=== PATIENT | female | born 1965 | race African-American/Black ===

== ENCOUNTER 2017-10-09 13:58 | Inpatient (IN) | payer OTHER ==
[2017-10-09 16:57] VITALS: BMI 21.4
--- NOTE | 2017-10-09 19:51 | HP ---
CIWA Score - CIWA Score Nausea/Vomitin Muscle Tremors: 3 Anxiety: 3 Agitation: 3 Paroxysmal Sweats: 2 Orientation: 0-Oriented Tacttile Disturbances: 2-Mild Itch/Numbness/Burn Auditory Disturbances: 2-Mild Harshness/Frighten Visual Disturbances: 1-Very Mild Sensitivity Headache: 2-Mild CIWA-Ar Total Score: 21 Admission ROS BHS - HPI Chief Complaint: i am here for detox from alcohol and crack Allergies/Adverse Reactions: Allergies Allergy/AdvReac Type Severity Reaction Status Date / Time No Known Allergies Allergy Verified 10/09/17 18:24 History of Present Illness: this 52 years old female with alcohol and cocaine dependence,seeking detox,last treatment 08/21/17 to 08/25/17 hypertension syncope nicotine dependence longest period of sobriety 2 months depression hiv since 1998 Exam Limitations: No Limitations - Ebola screening Have you traveled outside of the country in the last 21 days: No (N) Have you had contact with anyone from an Ebola affected area: No Have you been sick,other than usual withdrawal symptoms: No Do you have a fever: No - Review of Systems Constitutional: Loss of Appetite, Malaise, Night Sweats, Changes in sleep, Weakness, Unintentional Wgt. Loss EENT: reports: Tearing, Nose Congestion Respiratory: reports: No Symptoms reported Cardiac: reports: No Symptoms Reported GI: reports: Diarrhea, Nausea, Poor Appetite, Vomiting : reports: No Symptoms Reported Musculoskeletal: reports: Back Pain, Muscle Pain Integumentary: reports: Dryness Endocrine: reports: No Symptoms Reported Hematology: reports: No Symptoms Reported, Other (hiv) Psychiatric: reports: No Sypmtoms Reported, Judgement Intact, Mood/Affect Appropiate, Depressed Patient History - Patient Medical History Hx Anemia: No Hx Asthma: Yes (on albuterol inhaler) Hx Chronic Obstructive Pulmonary Disease (COPD): No Hx Cancer: No Hx Cardiac Disorders: No Hx Congestive Heart Failure: No Hx Hypertension: Yes (on med) Hx Hypercholesterolemia: No Hx Pacemaker: No HX Cerebrovascular Accident: No Hx Seizures: No Hx Diabetes: No Hx Gastrointestinal Disorders: No Hx Genitourinary Disorders: No Hx Sexually Transmitted Disorders: Yes (SYPHILIS treated) Hx Renal Disease (ESRD): No Hx Thyroid Disease: No Hx Human Immunodeficiency Virus (HIV): Yes (since 1998) Hx Hepatitis C: Yes (TREATED) Hx Depression: Yes Hx Suicide Attempt: No Hx Bipolar Disorder: No Hx Schizophrenia: No Other Medical History: no suicidal,no homicidal - Patient Surgical History Past Surgical History: Yes Hx Neurologic Surgery: No Hx Cataract Extraction: No Hx Cardiac Surgery: No Hx Lung Surgery: No Hx Breast Surgery: No Hx Breast Biopsy: No Hx Abdominal Surgery: Yes (hernia repair x2) Hx Appendectomy: No Hx Cholecystectomy: No Hx Genitourinary Surgery: No Hx Section: Yes (in 1985) Hx Orthopedic Surgery: No Other Surgical History: hysterectomy in 2003 - PPD History Previous Implant?: Yes Documented Results: Positive w/proof Implanted On Prior [facility] Admission?: No PPD to be Administered?: No - Reproductive History Last Menstrual Period: 03/25/04 Patient : No - Smoking Cessation Smoking history: Current every day smoker Have you smoked in the past 12 months: Yes Aproximately how many cigarettes per day: 5 Cigars Per Day: 0 Hx Chewing Tobacco Use: No Initiated information on smoking cessation: Yes 'Breaking Loose' booklet given: 10/09/17 - Substance & Tx. History Hx Alcohol Use: Yes Hx Substance Use: Yes Substance Use Type: Alcohol, Cocaine Hx Substance Use Treatment: Yes ([facility] 08/21/17 to 08/25/17) - Substances Abused Alcohol Route: Oral Frequency: Daily Amount used: 6 PKS OF VODKA Age of first use: 13 Date of Last Use: 10/07/17 Crack Route: Smoking Frequency: Daily Amount used: $100 Age of first use: 18 Date of Last Use: 10/08/17 Family Disease History - Family Disease History Family Disease History: Other: Father ( HX/O DRUG/ETOH DEP), Mother ( HX/O DRUG/ETOH DEP), Sister (ALCOHOLISM) Admission Physical Exam S - Vital Signs Vital Signs: Vital Signs - 24 hr 10/09/17 16:53 Temperature 96 F L Pulse Rate 88 Respiratory 20 Rate Blood Pressure 116/77 - Physical General Appearance: Yes: Moderate Distress, Tremorous, Irritable, Sweating, Anxious HEENTM: Yes: Normal ENT Inspection, AMELIA, Pharynx Normal Respiratory: Yes: Lungs Clear, Normal Breath Sounds, No Respiratory Distress Neck: Yes: Within Normal Limits, Supple, Trachea in good position Breast: Yes: Breast Exam Deferred Cardiology: Yes: Within Normal Limits, Regular Rhythm, Regular Rate, S1, S2 Abdominal: Yes: Within Normal Limits, Normal Bowel Sounds, Flat, Soft, Surgical Scar Genitourinary: Yes: Within Normal Limits Back: Yes: Muscle Spasm Musculoskeletal: Yes: Back pain, Muscle Pain Extremities: Yes: Tremors Neurological: Yes: developer designer II-XII NML intact, Fully Oriented, Alert, Motor Strength 5/5 Integumentary: Yes: Dry Lymphatic: Yes: Within Normal Limits - Diagnostic (1) Cocaine dependence, uncomplicated Current Visit: No Status: Acute (2) HIV (human immunodeficiency virus infection) Current Visit: No Status: Acute (3) Hepatitis C Current Visit: No Status: Acute (4) Alcohol dependence with uncomplicated withdrawal Current Visit: No Status: Chronic (5) Asthma Current Visit: No Status: Chronic Qualifiers: Asthma severity: mild intermittent (6) Nicotine dependence Current Visit: No Status: Chronic Qualifiers: Nicotine product type: cigarettes Substance use status: uncomplicated Qualified Code(s): F17.210 - Nicotine dependence, cigarettes, uncomplicated (7) Insomnia secondary to depression with anxiety Current Visit: Yes Status: Acute (8) Weight loss Current Visit: Yes Status: Acute Cleared for Admission [facility] - Detox or Rehab [facility] Level of Care: Medically Managed Detox Regimen/Protocol: Librium [facility] Breath Alcohol Content Breath Alcohol Content: 0 Urine Pregancy Test - Result Urine Test Results: Negative- NO Line Present Urine Drug Screen - Results Drug Screen Negative: No Urine Drug Screen Results: BARBARA-Cocaine, TCA-Tricyclic Antidepress
[2017-10-09] MEDS ORDERED: MENTHOL/PHENOL 1 EACH UD MM PRN (20:08)
[2017-10-09] MEDS ORDERED: MAGNESIUM HYDROX 2400MG/30ML ORAL SUSPENSION 30 ML CUP PO PRN (20:08)
[2017-10-09] MEDS ORDERED: IBUPROFEN 400 MG TABLET (FP) PO PRN (20:08)
[2017-10-09] MEDS ORDERED: chlordiazePOXIDE HCL 25 MG CAPSULE PO ONE (20:08)
[2017-10-09] MEDS ORDERED: hydrOXYzine PAMOATE 25 MG CAPSULE (FP) PO PRN (20:08)
[2017-10-09] MEDS ORDERED: P-EPHED 60MG/TRIPROLIDI 2.5MG TABLET PO PRN (20:08)
[2017-10-09] MEDS ORDERED: LOPERAMIDE HCL 2 MG CAPSULE PO PRN (20:08)
[2017-10-09] MEDS ORDERED: guaiFENesin/D-METHORPHAN HB 10 ML UNIT-DOSE CUPS PO PRN (20:08)
[2017-10-09] MEDS ORDERED: chlordiazePOXIDE HCL 25 MG CAPSULE PO PRN (20:08)
[2017-10-09] MEDS ORDERED: MAGNESIUM CITRATE 300 ML BOTTLE PO PRN (20:08)
[2017-10-09] MEDS ORDERED: ACETAMINOPHEN 325 MG TABLET (FP) PO PRN (20:08)
[2017-10-09] MEDS ORDERED: MAG HYDROX/AL HYDROX/SIMETH 30 ML UNIT-DOSE CUP PO PRN (20:08)
[2017-10-09] MEDS: MONTELUKAST NA 10 MG TABLET PO SCH (22:12)
[2017-10-09] MEDS: chlordiazePOXIDE HCL 25 MG CAPSULE PO SCH (22:13)
[2017-10-09] MEDS: THIAMINE HCL 100 MG TABLET (FP) PO SCH (22:13)
[2017-10-10] MEDS: chlordiazePOXIDE HCL 25 MG CAPSULE PO SCH ×4 (05:29→22:11)
[2017-10-10] MEDS ORDERED: PATIENT'S OWN MEDICATION (NON-FORMULARY) (Abacavir Sulfate/Lamivudine [Abacavir-Lamivudine PO SCH ×2 (10:00)
[2017-10-10] MEDS ORDERED: PATIENT'S OWN MEDICATION (NON-FORMULARY) (Lisinopril/Hydrochlorothiazide [Lisinopril-Hctz PO SCH (10:00)
[2017-10-10] MEDS ORDERED: DARUNAVIR ETHANOLATE 800 MG TAB PO SCH (10:00)
[2017-10-10 10:17] LABS: MCHC 32.5 g/dl (32.0-36.0); MEAN CELL VOLUME 95.3 fl (80-96); MEAN PLT VOLUME 7.5 fl (7.5-11.1); PLATELET COUNT 191 K/MM3 (134-434); RDW 13.6 % (11.6-15.6); WHITE BLOOD COUNT 3.4 K/mm3 (4.0-10.0)
--- NOTE | 2017-10-10 10:36 | PN ---
S CIWA - CIWA Score Nausea/Vomitin Muscle Tremors: 3 Anxiety: 3 Agitation: 3 Paroxysmal Sweats: 2 Orientation: 0-Oriented Tacttile Disturbances: 1-Very Mild Itch/Numbness Auditory Disturbances: 1-Very Mild Visual Disturbances: 0-None Headache: 1-Very Mild CIWA-Ar Total Score: 17 BHS Progress Note (SOAP) Subjective: ALERT,IRRITABLE,ANXIOUS,INTERRUPTED SLEEP,TREMOR Objective: 10/10/17 10:34 Vital Signs Temperature 97.9 F 10/10/17 10:31 Pulse Rate 75 10/10/17 10:31 Respiratory Rate 18 10/10/17 10:31 Blood Pressure 123/75 10/10/17 10:31 O2 Sat by Pulse Oximetry (%) EKG NSR NO CHEST PAIN,NO SOB,NO DIZZINESS Laboratory Last Values WBC 3.4 K/mm3 (4.0-10.0) L 10/10/17 04:00 RBC 3.52 M/mm3 (3.60-5.2) L 10/10/17 04:00 Hgb 10.9 GM/dL (10.7-15.3) 10/10/17 04:00 Hct 33.5 % (32.4-45.2) 10/10/17 04:00 MCV 95.3 fl (80-96) 10/10/17 04:00 MCH 31.0 pg (25.7-33.7) 10/10/17 04:00 MCHC 32.5 g/dl (32.0-36.0) 10/10/17 04:00 RDW 13.6 % (11.6-15.6) 10/10/17 04:00 Plt Count 191 K/MM3 (134-434) 10/10/17 04:00 MPV 7.5 fl (7.5-11.1) 10/10/17 04:00 LABS PENDING Assessment: 10/10/17 10:35 WITHDRAWAL SYMPTOM Plan: CONTINUE DETOX
[2017-10-10] MEDS: HYDROCHLOROTHIAZIDE 25 MG TABLET (FP) PO SCH (10:52)
[2017-10-10] MEDS: PRENATAL VITAMINS W/ FOLIC ACID TABLET (FP) PO SCH (10:52)
[2017-10-10] MEDS: DARUNAVIR ETHANOLATE 800 MG TAB PO SCH (10:52)
[2017-10-10] MEDS: LISINOPRIL 20 MG TABLET (FP) PO SCH (10:52)
[2017-10-10] MEDS: ASPIRIN COATED 81 MG TABLET.EC PO SCH (10:52)
[2017-10-10] MEDS: amLODIPine BESYLATE 10 MG TABLET (FP) PO SCH (10:52)
[2017-10-10 10:55] LABS: CALCIUM 8.7 mg/dL (8.5-10.1)
[2017-10-10] MEDS: RITONAVIR 100 MG TABLET PO SCH (10:57)
[2017-10-10] MEDS: ABACAVIR SULFATE 300 MG TABLET PO SCH (10:58)
[2017-10-10 11:01] LABS: ALBUMIN 3.1 g/dl (3.4-5.0); ALK PHOS 49 U/L (45-117); ANION GAP 7 (8-16); BILIRUBIN,TOTAL 0.4 mg/dL (0.2-1.0); CO2 29 mmol/L (21-32); CREATININE 1.1 mg/dL (0.55-1.02); GLUCOSE,RANDOM 93 mg/dL (74-106); SGOT/AST 8 U/L (15-37); SGPT/ALT 11 U/L (12-78)
--- NOTE | 2017-10-10 12:36 | EKG ---
Test Reason : Blood Pressure : / mmHG Vent. Rate : 081 BPM Atrial Rate : 081 BPM P-R Int : 164 ms QRS Dur : 070 ms QT Int : 398 ms P-R-T Axes : 080 023 050 degrees QTc Int : 462 ms NORMAL SINUS RHYTHM POSSIBLE LEFT ATRIAL ENLARGEMENT BORDERLINE ECG WHEN COMPARED WITH ECG OF 21-AUG-2017 23:55, NO SIGNIFICANT CHANGE WAS FOUND Confirmed by RA AGUILAR MD ([id number]) on 10/10/2017 12:36:27 PM Referred By: JASON GREER Confirmed By:RA AGUILAR MD
[2017-10-10] MEDS: NICOTINE POLACRILEX 2 MG GUM BC PRN ×2 (17:24→22:12)
[2017-10-10] MEDS: THIAMINE HCL 100 MG TABLET (FP) PO SCH (22:10)
[2017-10-10] MEDS: MONTELUKAST NA 10 MG TABLET PO SCH (22:11)
[2017-10-11] MEDS: chlordiazePOXIDE HCL 25 MG CAPSULE PO SCH ×3 (05:35→17:25)
[2017-10-11] MEDS: LISINOPRIL 20 MG TABLET (FP) PO SCH (10:58)
[2017-10-11] MEDS: HYDROCHLOROTHIAZIDE 25 MG TABLET (FP) PO SCH (10:58)
[2017-10-11] MEDS: PRENATAL VITAMINS W/ FOLIC ACID TABLET (FP) PO SCH (10:58)
[2017-10-11] MEDS: ASPIRIN COATED 81 MG TABLET.EC PO SCH (10:58)
[2017-10-11] MEDS: amLODIPine BESYLATE 10 MG TABLET (FP) PO SCH (10:58)
[2017-10-11] MEDS: DARUNAVIR ETHANOLATE 800 MG TAB PO SCH (10:58)
[2017-10-11] MEDS: RITONAVIR 100 MG TABLET PO SCH (10:59)
[2017-10-11] MEDS: ABACAVIR SULFATE 300 MG TABLET PO SCH (10:59)
--- NOTE | 2017-10-11 11:23 | PN ---
S CIWA - CIWA Score Nausea/Vomitin Muscle Tremors: 3 Anxiety: 3 Agitation: 2 Paroxysmal Sweats: 1-Minimal Palms Moist Orientation: 0-Oriented Tacttile Disturbances: 1-Very Mild Itch/Numbness Auditory Disturbances: 1-Very Mild Visual Disturbances: 0-None Headache: 2-Mild CIWA-Ar Total Score: 16 BHS Progress Note (SOAP) Subjective: alert,irritable,anxious,interrupted sleep Objective: 10/11/17 11:22 Vital Signs Temperature 97.7 F 10/11/17 10:19 Pulse Rate 93 H 10/11/17 10:19 Respiratory Rate 18 10/11/17 10:19 Blood Pressure 128/78 10/11/17 10:19 O2 Sat by Pulse Oximetry (%) Laboratory Last Values WBC 3.4 K/mm3 (4.0-10.0) L 10/10/17 04:00 RBC 3.52 M/mm3 (3.60-5.2) L 10/10/17 04:00 Hgb 10.9 GM/dL (10.7-15.3) 10/10/17 04:00 Hct 33.5 % (32.4-45.2) 10/10/17 04:00 MCV 95.3 fl (80-96) 10/10/17 04:00 MCH 31.0 pg (25.7-33.7) 10/10/17 04:00 MCHC 32.5 g/dl (32.0-36.0) 10/10/17 04:00 RDW 13.6 % (11.6-15.6) 10/10/17 04:00 Plt Count 191 K/MM3 (134-434) 10/10/17 04:00 MPV 7.5 fl (7.5-11.1) 10/10/17 04:00 Sodium 143 mmol/L (136-145) 10/10/17 04:00 Potassium 3.6 mmol/L (3.5-5.1) 10/10/17 04:00 Chloride 107 mmol/L (98-107) 10/10/17 04:00 Carbon Dioxide 29 mmol/L (21-32) 10/10/17 04:00 Anion Gap 7 (8-16) L 10/10/17 04:00 BUN 15 mg/dL (7-18) D 10/10/17 04:00 Creatinine 1.1 mg/dL (0.55-1.02) H D 10/10/17 04:00 Creat Clearance w eGFR 51.76 (>60) 10/10/17 04:00 Random Glucose 93 mg/dL (74-106) 10/10/17 04:00 Calcium 8.7 mg/dL (8.5-10.1) 10/10/17 04:00 Total Bilirubin 0.4 mg/dL (0.2-1.0) D 10/10/17 04:00 AST 8 U/L (15-37) L 10/10/17 04:00 ALT 11 U/L (12-78) L 10/10/17 04:00 Alkaline Phosphatase 49 U/L (45-117) 10/10/17 04:00 Total Protein 7.0 g/dl (6.4-8.2) 10/10/17 04:00 Albumin 3.1 g/dl (3.4-5.0) L 10/10/17 04:00 RPR Titer Nonreactive (NONREACTIVE) 10/10/17 04:00 Assessment: 10/11/17 11:22 withdrawal symptom Plan: continue detox
[2017-10-11 14:30] LABS: URINE APPEARANCE CLEAR; URINE BILIRUBIN NEGATIVE (NEGATIVE); URINE BLOOD NEGATIVE (NEGATIVE); URINE COLOR LTYELLOW; URINE GLUCOSE (UA) NEGATIVE (NEGATIVE); URINE KETONE NEGATIVE (NEGATIVE); URINE NITRITE NEGATIVE (NEGATIVE); URINE PROTEIN NEGATIVE (NEGATIVE); URINE UROBILINOGEN NEGATIVE mg/dL (0.2-1.0)
--- NOTE | 2017-10-11 16:18 | CONSULT ---
[facility] Psychiatric Consult - Data Date of interview: 10/11/17 Admission source: [facility] Identifying data: Readmission to [facility] for this 52 y/o AA female seeking detox treatment on for alcohol and cocaine (crack) dependence.Patient is single,mother of one,domicled,unemployed and supported on [employer] benefits. Substance Abuse History: Active use of alcohol and crack as per self-report.See [facility] report for details. Smoking history: Current every day smoker. Have you smoked in the past 12 months: Yes. Aproximately how many cigarettes per day: 5. Cigars Per Day: 0. Hx Chewing Tobacco Use: No. Initiated information on smoking cessation: Yes. 'Breaking Loose' booklet given: 10/09/17. - Substance & Tx. History. Hx Alcohol Use: Yes. Hx Substance Use: Yes. Substance Use Type : Alcohol, Cocaine. Hx Substance Use Treatment: Yes ([facility] 08/21/17 to 08/25/17) . - Substances Abused. Alcohol. Route: Oral. Frequency: Daily. Amount used: 6 PKS OF VODKA. Age of first use: 13. Date of Last Use: 10/07/17. Crack. Route: Smoking. Frequency: Daily. Amount used: $100. Age of first use : 18. Date of Last Use: 10/08/17 Medical History: HIV infection since 1998,bronchial asthma,hypertension, hepatitis C,past history of tretament for syphilis,two hernia repairs and hysterectomy. Psychiatric History: No reported history of psychiaric hospitalizations.Patient declares the diagnosis of MDD and treatment with seroquel 300 mg/hs.OPD care at [facility].Last took seroquel 3-4 days ago (self-report).Ms Miller denies history of suicide attempts. Physical/Sexual Abuse/Trauma History: Patient denies. Additional Comment: Urine Drug Screen Results: BARBARA-Cocaine, TCA-Tricyclic Antidepressant.Noted. Mental Status Exam - Mental Status Exam Alert and Oriented to: Time, Place, Person Cognitive Function: Grossly Intact Patient Appearance: Well Groomed Mood: Nervous, Withdrawn, Anxious Affect: Mood Congruent Patient Behavior: Fatigued, Cooperative Speech Pattern: Clear Voice Loudness: Normal Thought Process: Goal Oriented Thought Disorder: Not Present Hallucinations: Denies Suicidal Ideation: Denies Homicidal Ideation: Denies Insight/Judgement: Poor Sleep: Poorly, Difficulty falling asleep Appetite: Good Muscle strength/Tone: Normal Gait/Station: Normal Psychiatric Findings - Problem List ([place] 1, 2,3) (1) Alcohol dependence with uncomplicated withdrawal Current Visit: Yes Status: Acute (2) Cocaine dependence, uncomplicated Current Visit: Yes Status: Acute (3) Nicotine dependence Current Visit: Yes Status: Acute Qualifiers: Nicotine product type: cigarettes Substance use status: uncomplicated Qualified Code(s): F17.210 - Nicotine dependence, cigarettes, uncomplicated (4) Drug-induced mood disorder Current Visit: Yes Status: Acute (5) Mood disorder Current Visit: Yes Status: Suspected (6) Insomnia Current Visit: Yes Status: Acute - Initial Treatment Plan Initial Treatment Plan: Psychoeducation.Sleep hygiene.Detoxification in progress.Contact established with [facility] at [phone] : refill for seroquel 300 mg tab # days was picked up on 09/25/17 as pharmacist.Will, anyway,restart patient on 200 mg of seroquel at bedtime and,if no oversedation/ hypotension/unsteady gait/adverse drug-drug interactions with ART medications in next 24 hours,will raise dose to 300 mg.Patient is informed this strategy and she agrees with careplan.Observation.NO script for seroquel required at discharge from [facility] (refill available for OPD provider).Observation.
[2017-10-11 19:55] LABS: URINE LEUK ESTERASE Negative (NEGATIVE)
[2017-10-11] MEDS: MONTELUKAST NA 10 MG TABLET PO SCH (22:00)
[2017-10-11] MEDS: QUEtiapine FUMARATE 200 MG TABLET PO SCH (22:00)
[2017-10-11] MEDS ORDERED: QUEtiapine FUMARATE 200 MG TABLET PO SCH (22:00)
[2017-10-11] MEDS: THIAMINE HCL 100 MG TABLET (FP) PO SCH (22:01)
[2017-10-11] MEDS: chlordiazePOXIDE 5 MG CAPSULE PO SCH (22:04)
[2017-10-12] MEDS: chlordiazePOXIDE 5 MG CAPSULE PO SCH ×3 (06:34→18:17)
[2017-10-12] MEDS: PRENATAL VITAMINS W/ FOLIC ACID TABLET (FP) PO SCH (10:22)
[2017-10-12] MEDS: DARUNAVIR ETHANOLATE 800 MG TAB PO SCH (10:22)
[2017-10-12] MEDS: LISINOPRIL 20 MG TABLET (FP) PO SCH (10:22)
[2017-10-12] MEDS: amLODIPine BESYLATE 10 MG TABLET (FP) PO SCH (10:22)
[2017-10-12] MEDS: ASPIRIN COATED 81 MG TABLET.EC PO SCH (10:23)
[2017-10-12] MEDS: HYDROCHLOROTHIAZIDE 25 MG TABLET (FP) PO SCH (10:23)
[2017-10-12] MEDS: RITONAVIR 100 MG TABLET PO SCH (10:25)
[2017-10-12] MEDS: ABACAVIR SULFATE 300 MG TABLET PO SCH (10:25)
--- NOTE | 2017-10-12 11:53 | PN ---
BHS Progress Note (SOAP) Subjective: Sweating,interrupted sleep. Objective: 10/12/17 11:51 Vital Signs - 8 hr 10/12/17 10/12/17 10/12/17 06:00 07:19 10:00 Temperature 97.2 F L 98.5 F 97.0 F L Pulse Rate 71 88 91 H Respiratory 18 18 18 Rate Blood Pressure 115/67 151/93 104/61 Laboratory Tests 10/10/17 10/10/17 10/10/17 04:00 04:00 04:00 WBC 3.4 L RBC 3.52 L Hgb 10.9 Hct 33.5 MCV 95.3 MCH 31.0 MCHC 32.5 RDW 13.6 Plt Count 191 MPV 7.5 Sodium 143 Potassium 3.6 Chloride 107 Carbon Dioxide 29 Anion Gap 7 L BUN 15 D Creatinine 1.1 H D Creat Clearance w eGFR 51.76 Random Glucose 93 Calcium 8.7 Total Bilirubin 0.4 D AST 8 L ALT 11 L Alkaline Phosphatase 49 Total Protein 7.0 Albumin 3.1 L Urine Color Urine Appearance Urine pH Ur Specific [place] Urine Protein Urine Glucose (UA) Urine Ketones Urine Blood Urine Nitrite Urine Bilirubin Urine Urobilinogen Ur Leukocyte Esterase RPR Titer Nonreactive 10/11/17 12:20 WBC RBC Hgb Hct MCV MCH MCHC RDW Plt Count MPV Sodium Potassium Chloride Carbon Dioxide Anion Gap BUN Creatinine Creat Clearance w eGFR Random Glucose Calcium Total Bilirubin AST ALT Alkaline Phosphatase Total Protein Albumin Urine Color Ltyellow Urine Appearance Clear Urine pH 6.0 Ur Specific [place] 1.011 Urine Protein Negative Urine Glucose (UA) Negative Urine Ketones Negative Urine Blood Negative Urine Nitrite Negative Urine Bilirubin Negative Urine Urobilinogen Negative Ur Leukocyte Esterase Negative RPR Titer labs noted Assessment: 10/12/17 11:54 withdrawal sx Plan: Continue detox
[2017-10-12] MEDS: chlordiazePOXIDE HCL 10 MG CAPSULE PO SCH (22:05)
[2017-10-12] MEDS: QUEtiapine FUMARATE 200 MG TABLET PO SCH (22:05)
[2017-10-12] MEDS: MONTELUKAST NA 10 MG TABLET PO SCH (22:05)
[2017-10-12] MEDS: THIAMINE HCL 100 MG TABLET (FP) PO SCH (22:05)
[2017-10-13] MEDS: chlordiazePOXIDE HCL 10 MG CAPSULE PO SCH ×2 (05:19→10:25)
[2017-10-13] MEDS: DARUNAVIR ETHANOLATE 800 MG TAB PO SCH (07:21)
[2017-10-13 09:23] VITALS: BP 103/66; PULSE 90; TEMP 97
--- NOTE | 2017-10-13 09:28 | DS ---
[facility] Detox Discharge Summary Admission Date: 10/09/17 Discharge Date: 10/13/17 - History Present History: Alcohol Dependence, Cocaine Dependence Pertinent Past History: Asthma Hep C HIV - Physical Exam Results Vital Signs: Vital Signs Temperature 97.0 F L 10/13/17 09:23 Pulse Rate 90 10/13/17 09:23 Respiratory Rate 18 10/13/17 09:23 Blood Pressure 103/66 10/13/17 09:23 O2 Sat by Pulse Oximetry (%) Pertinent Admission Physical Exam Findings: Withdrawal sx. Laboratory Last Values WBC 3.4 K/mm3 (4.0-10.0) L 10/10/17 04:00 RBC 3.52 M/mm3 (3.60-5.2) L 10/10/17 04:00 Hgb 10.9 GM/dL (10.7-15.3) 10/10/17 04:00 Hct 33.5 % (32.4-45.2) 10/10/17 04:00 MCV 95.3 fl (80-96) 10/10/17 04:00 MCH 31.0 pg (25.7-33.7) 10/10/17 04:00 MCHC 32.5 g/dl (32.0-36.0) 10/10/17 04:00 RDW 13.6 % (11.6-15.6) 10/10/17 04:00 Plt Count 191 K/MM3 (134-434) 10/10/17 04:00 MPV 7.5 fl (7.5-11.1) 10/10/17 04:00 Sodium 143 mmol/L (136-145) 10/10/17 04:00 Potassium 3.6 mmol/L (3.5-5.1) 10/10/17 04:00 Chloride 107 mmol/L (98-107) 10/10/17 04:00 Carbon Dioxide 29 mmol/L (21-32) 10/10/17 04:00 Anion Gap 7 (8-16) L 10/10/17 04:00 BUN 15 mg/dL (7-18) D 10/10/17 04:00 Creatinine 1.1 mg/dL (0.55-1.02) H D 10/10/17 04:00 Creat Clearance w eGFR 51.76 (>60) 10/10/17 04:00 Random Glucose 93 mg/dL (74-106) 10/10/17 04:00 Calcium 8.7 mg/dL (8.5-10.1) 10/10/17 04:00 Total Bilirubin 0.4 mg/dL (0.2-1.0) D 10/10/17 04:00 AST 8 U/L (15-37) L 10/10/17 04:00 ALT 11 U/L (12-78) L 10/10/17 04:00 Alkaline Phosphatase 49 U/L (45-117) 10/10/17 04:00 Total Protein 7.0 g/dl (6.4-8.2) 10/10/17 04:00 Albumin 3.1 g/dl (3.4-5.0) L 10/10/17 04:00 Urine Color Ltyellow 10/11/17 12:20 Urine Appearance Clear 10/11/17 12:20 Urine pH 6.0 (5.0-8.0) 10/11/17 12:20 Ur Specific [place] 1.011 (1.001-1.035) 10/11/17 12:20 Urine Protein Negative (NEGATIVE) 10/11/17 12:20 Urine Glucose (UA) Negative (NEGATIVE) 10/11/17 12:20 Urine Ketones Negative (NEGATIVE) 10/11/17 12:20 Urine Blood Negative (NEGATIVE) 10/11/17 12:20 Urine Nitrite Negative (NEGATIVE) 10/11/17 12:20 Urine Bilirubin Negative (NEGATIVE) 10/11/17 12:20 Urine Urobilinogen Negative mg/dL (0.2-1.0) 10/11/17 12:20 Ur Leukocyte Esterase Negative (NEGATIVE) 10/11/17 12:20 RPR Titer Nonreactive (NONREACTIVE) 10/10/17 04:00 labs noted - Treatment Hospital Course: Detox Protocol Followed, Detoxed Safely, Responded well, Discharged Condition Good, Rehab Referral Accepted Patient has Accepted a Rehab Referral to: [facility] [place] - Medication Discharge Medications: Ambulatory Orders Abacavir Sulfate/Lamivudine [Abacavir-Lamivudine 600-300 mg] 1 each PO DAILY Amlodipine Besylate [Norvasc -] 10 mg PO DAILY 08/22/17 Aspirin [Aspirin EC] 81 mg PO DAILY 08/22/17 Darunavir Ethanolate [Prezista] 800 mg PO DAILY 08/22/17 Lisinopril/Hydrochlorothiazide [Lisinopril-Hctz 20-25 mg Tab] 1 each PO DAILY Quetiapine Fumarate [Seroquel -] 300 mg PO HS #30 tab 08/22/17 Ritonavir [Norvir -] 100 mg PO DAILY 08/22/17 Montelukast Na [Singulair -] 10 mg PO HS 10/09/17 - Diagnosis (1) Alcohol dependence with uncomplicated withdrawal Current Visit: Yes Status: Acute (2) Cocaine dependence, uncomplicated Current Visit: Yes Status: Acute (3) Drug-induced mood disorder Current Visit: Yes Status: Acute (4) Nicotine dependence Current Visit: Yes Status: Acute Qualifiers: Nicotine product type: cigarettes Substance use status: uncomplicated Qualified Code(s): F17.210 - Nicotine dependence, cigarettes, uncomplicated (5) HIV (human immunodeficiency virus infection) Current Visit: No Status: Acute (6) Hepatitis C Current Visit: No Status: Acute (7) Asthma Current Visit: No Status: Chronic Qualifiers: Asthma severity: mild intermittent - AMA Did Patient Leave Against Medical Advice: No
[2017-10-13] MEDS: amLODIPine BESYLATE 10 MG TABLET (FP) PO SCH (10:25)
[2017-10-13] MEDS: PRENATAL VITAMINS W/ FOLIC ACID TABLET (FP) PO SCH (10:25)
[2017-10-13] MEDS: ABACAVIR SULFATE 300 MG TABLET PO SCH (10:25)
[2017-10-13] MEDS: RITONAVIR 100 MG TABLET PO SCH (10:25)
[2017-10-13] MEDS: HYDROCHLOROTHIAZIDE 25 MG TABLET (FP) PO SCH (10:25)
[2017-10-13] MEDS: ASPIRIN COATED 81 MG TABLET.EC PO SCH (10:25)
[2017-10-13] MEDS: LISINOPRIL 20 MG TABLET (FP) PO SCH (10:25)
== END 2017-10-13 11:05 | disposition home or self-care (01) | DRG 775 ==
LOC: YASAS 13:58 → Y6N 19:25
PROVIDERS: ADMIT Internal Medicine; ATTEND Internal Medicine
PROC: HZ2ZZZZ Detoxification Services for Substance Abuse Treatment (ICD-10-PCS; principal; 2017-10-09)
DX: F10.230 Alcohol dependence with withdrawal, uncomplicated (principal); F17.210 Nicotine dependence, cigarettes, uncomplicated; F39 Unspecified mood [affective] disorder; F19.24 Other psychoactive substance dependence with psychoactive substance-induced mood disorder; G47.00 Insomnia, unspecified; I10 Essential (primary) hypertension; B18.2 Chronic viral hepatitis C; J45.20 Mild intermittent asthma, uncomplicated; Z21 Asymptomatic human immunodeficiency virus [HIV] infection status; R76.11 Nonspecific reaction to tuberculin skin test without active tuberculosis
CPT/HCPCS: 36415; 80053; 81003; 85027; 86593; 93005; 93010